=== PATIENT | male | born 1945 | race Caucasian/White ===

== ENCOUNTER 2019-09-01 09:32 | Emergency (ER) | payer OTHER ==
--- NOTE | 2019-09-01 10:12 | EDPHYS ---
Physician Documentation [facility] Name: Connor Nash Age: 73 yrs Sex: Male : 1945 Arrival Date: 09/01/2019 Time: 09:36 Bed 15 Private MD: ED Physician Robi Anderson HPI: 08/31 10:08 This 73 yrs old Male presents to ER via Ambulatory with complaints of Poision jmm Maddie, Rash. 10:08 The patient's rash thought to be caused by Dermatitis. Onset: The symptoms/episode jmm began/occurred gradually, 2 week(s) ago. Associated signs and symptoms: Pertinent positives: itching, Pertinent negatives: difficulty breathing, Pain swelling of lips, swelling of throat, swelling of tongue, wheezing. Treatment given at home: OTC lotion/cream. Patient states having no relief with OTC medications. Historical: - Allergies: 09:58 No Known Allergies; ca1 - PMHx: 09:58 Diabetes - NIDDM; Hyperlipidemia; Hypertension; ca1 - PSHx: 09:58 None; ca1 - Immunization history:: Adult Immunizations up to date. - Social history:: Smoking status: Patient reports the use of cigarette tobacco products, smokes one-half pack cigarettes per day. ROS: 10:08 Constitutional: Negative for fever, chills, and weight loss, Cardiovascular: Negative jmm for chest pain, palpitations, and edema, Respiratory: Negative for shortness of breath, cough, wheezing, and pleuritic chest pain. 10:08 Skin: Positive for rash. 10:08 All other systems are negative. Exam: 10:08 Constitutional: This is a well developed, well nourished patient who is awake, alert, jmm and in no acute distress. Head/Face: atraumatic. Eyes: EOMI, no conjunctival erythema appreciated ENT: Moist Mucus Membranes Neck: Trachea midline, Supple Chest/axilla: Normal chest wall appearance and motion. Cardiovascular: Regular rate and rhythm. No edema appreciated Respiratory: Normal respirations, no respiratory distress appreciated Abdomen/GI: Non distended, soft Back: Normal ROM 10:08 Skin: erythema noted to the forearms bilaterally, consistent with contact dermatitis. 10:08 Neuro: Orientation: is normal, Mentation: is normal, Memory: is normal. 10:08 Psych: Behavior/mood is pleasant, cooperative. Vital Signs: 09:55 BP 173 / 76; Pulse 70; Resp 15 S; Temp 97.6(TE); Pulse Ox 100% on R/A; Weight 95.25 kg ca1 (R); Height 5 ft. 11 in. (180.34 cm) (R); 09:55 Body Mass Index 29.29 (95.25 kg, 180.34 cm) ca1 MDM: 10:00 Patient medically screened. surya 10:10 Data reviewed: vital signs, nurses notes. Counseling: I had a detailed discussion with surya the patient and/or guardian regarding: the historical points, exam findings, and any diagnostic results supporting the discharge/admit diagnosis, the need for outpatient follow up, to return to the emergency department if symptoms worsen or persist or if there are any questions or concerns that arise at home. ED course: Patient is alert and non toxic in appearance in the ED. PE consistent with contact dermatitis. Patient advised to close monitor home BGL and d/c prednisone if elevated. Patient is otherwise given strict return precautions. Patient understood and agrees with the plan of care. . Administered Medications: No medications were administered Disposition: 14:52 Co-signature as Attending Physician, Robi Anderson MD. rn Disposition: 09/01/19 10:11 Discharged to Home. Impression: Rash and other nonspecific skin eruption. - Condition is Stable. - Discharge Instructions: Rash. - Prescriptions for Prednisone 20 mg Oral Tablet - take 3 tablets by ORAL route once daily for 12 days Take 3 pills once daily for 3 days, then take 2 pills daily for 3 days, then take 1 pill daily for 3 days, then 1/2 tab po daily for 3 days.; 20 tablet. - Medication Reconciliation Form, Thank You Letter, Antibiotic Education, Prescription Opioid Use form. - Follow up: Private Physician; When: 2 - 3 days; Reason: Recheck today's complaints, Continuance of care, Re-evaluation by your physician. Signatures: Lizbet Alford RN RN Bronson Yancey PA PA jmm Nieto, Roman, MD MD rn Acob, Pita RN RN ca1 Corrections: (The following items were deleted from the chart) 10:29 10:11 09/01/2019 10:11 Discharged to Home. Impression: Rash and other nonspecific skin sv eruption. Condition is Stable. Forms are Medication Reconciliation Form, Thank You Letter, Antibiotic Education, Prescription Opioid Use. Follow up: Private Physician; When: 2 - 3 days; Reason: Recheck today's complaints, Continuance of care, Re-evaluation by your physician. surya
--- NOTE | 2019-09-01 10:12 | ER ---
Nurse's Notes [facility] Name: Connor Nash Age: 73 yrs Sex: Male : 1945 Arrival Date: 09/01/2019 Time: 09:36 Bed 15 Private MD: Diagnosis: Rash and other nonspecific skin eruption Presentation: 08/31 09:55 Chief complaint: Patient states: Red rash on R forearm started 2 weeks ago. Hasn't gone ca1 away with topical creams and ointments and it's slowly spreading upwards. Coronavirus screen: Proceed with normal triage. Patient denies a cough. Patient denies shortness of breath or difficulty breathing. Patient denies measured and/or subjective temperature greater than 100.4F prior to today's visit. Patient denies travel on a cruise ship or to a country the [facility] currently lists as an affected area. Patient denies contact with known and/or suspected case of COVID-19. Ebola Screen: Patient negative for fever greater than or equal to 101.5 degrees Fahrenheit, and additional compatible Ebola Virus Disease symptoms Patient denies exposure to infectious person. Patient denies travel to an Ebola-affected area in the 21 days before illness onset. No symptoms or risks identified at this time. Initial Sepsis Screen: Does the patient meet any 2 criteria? No. Patient's initial sepsis screen is negative. Does the patient have a suspected source of infection? No. Patient's initial sepsis screen is negative. Risk Assessment: Do you want to hurt yourself or someone else? Patient reports no desire to harm self or others. Onset of symptoms was September 01, 2019. 09:55 Method Of Arrival: Ambulatory ca1 09:55 Acuity: KIP 4 ca1 Historical: - Allergies: 09:58 No Known Allergies; ca1 - PMHx: 09:58 Diabetes - NIDDM; Hyperlipidemia; Hypertension; ca1 - PSHx: 09:58 None; ca1 - Immunization history:: Adult Immunizations up to date. - Social history:: Smoking status: Patient reports the use of cigarette tobacco products, smokes one-half pack cigarettes per day. Screenin:06 Abuse screen: Denies threats or abuse. Denies injuries from another. Nutritional sv screening: No deficits noted. Tuberculosis screening: No symptoms or risk factors identified. Fall Risk None identified. Assessment: 10:00 General: Appears in no apparent distress. uncomfortable, well groomed, well developed, sv Behavior is calm, cooperative, appropriate for age. Pain: Denies pain. Neuro: Level of Consciousness is awake, alert, obeys commands, Oriented to person, place, time, situation, Moves all extremities. Full function Gait is steady. Respiratory: Respiratory effort is even, unlabored, Respiratory pattern is regular, symmetrical. Derm: Skin is pink, warm \T\ dry. Rash noted that is itchy, red, urticaria, on chest, right arm and left arm. Musculoskeletal: Range of motion: intact in all extremities. Vital Signs: 09:55 BP 173 / 76; Pulse 70; Resp 15 S; Temp 97.6(TE); Pulse Ox 100% on R/A; Weight 95.25 kg ca1 (R); Height 5 ft. 11 in. (180.34 cm) (R); 09:55 Body Mass Index 29.29 (95.25 kg, 180.34 cm) ca1 ED Course: 09:36 Patient arrived in ED. bp1 09:46 Bronosn Grey PA is PHCP. jmm 09:46 Robi Anderson MD is Attending Physician. jmm 09:57 Triage completed. ca1 09:58 Arm band placed on right wrist. ca1 09:59 Lizbet Alford RN is Primary Nurse. sv 10:06 Nurse Practitioner and/or Physician Scale Tank Operator to see patient. sv 10:06 Patient has correct armband on for positive identification. Bed in low position. Call sv light in reach. Door closed. Head of bed elevated. 10:06 No provider procedures requiring assistance completed. Patient did not have IV access sv during this emergency room visit. Administered Medications: No medications were administered Outcome: 10:11 Discharge ordered by . jm 10:29 Discharged to home ambulatory. sv 10:29 Condition: stable 10:29 Discharge instructions given to patient, Instructed on discharge instructions, follow up and referral plans. medication usage, Demonstrated understanding of instructions, follow-up care, medications, Prescriptions given X 1. 10:29 Patient left the ED. sv Signatures: Lizbet Alford RN RN Bronson Yancey PA PA jmm Acob, Cheryl, RN RN [facility] Susana Angeles bp1
[2019-09-01 10:53] VITALS: BP 173/76; TEMP 97.6; O2SAT 100
== END 2019-09-01 10:29 | disposition home or self-care (01) ==
LOC: ER 09:32
DX: R21 Rash and other nonspecific skin eruption (principal); I10 Essential (primary) hypertension; F17.210 Nicotine dependence, cigarettes, uncomplicated
CPT/HCPCS: 99282

== ENCOUNTER 2024-01-21 06:15 | Day surgery (SDC) | payer OTHER ==
[2024-01-19 11:10] LABS: Absolute Basophils 0.1 K/uL (0-0.5); Absolute Eosinophils 0.3 K/uL (0-0.5); Absolute Lymphocytes (CBC) 2.5 K/uL (0.7-4.9); Absolute Monocytes 1.6 K/uL (0.1-1.3); Absolute Neutrophil 10.6 K/uL (1.8-8.0); Basophils % 0.4 % (0-1.3); Hematocrit 30.5 % (39.6-49.0); Hemoglobin 9.8 g/dL (13.6-17.9); Lymphocytes % 16.5 % (15.3-44.8); MCH 27.5 pg (27.0-35.0); MCHC 32.2 g/dL (32.0-36.0); MCV 85.5 fL (80-100); MPV 7.6 fL (7.6-11.3); Monocytes % 10.8 % (3.3-12.3); Neutrophils % 70.3 % (41.7-73.7); Platelets 616 thou/uL (152-406); RBC Red Blood Cell Count 3.57 M/uL (4.33-5.43); Red Cell Distribution Width 13.2 % (12.1-15.2)
[2024-01-19 11:21] LABS: Anion Gap 9.6 mEq/L (5.0-15.0); Potassium 4.6 mEq/L (3.5-5.1)
[2024-01-21] MEDS ORDERED: Phenylephrine HCl 10 MG/ML 1 ML VIAL ONE (06:55)
[2024-01-21] MEDS ORDERED: GLYCOPYRROLATE 0.2 MG/ML SYR ONE ×2 (06:55→08:10)
[2024-01-21] MEDS ORDERED: NA CHLORIDE 0.9% 1,000 ML ONE (06:55)
[2024-01-21] MEDS ORDERED: propofoL 200 MG/20 ML VIAL IV ONE (07:22)
[2024-01-21] MEDS ORDERED: LIDOCAINE 1% MPF 5 ML VIAL ONE (07:22)
[2024-01-21] MEDS: Phenylephrine HCl 10 MG/ML 1 ML VIAL ONE (07:40)
[2024-01-21] MEDS: LIDOCAINE 4% TOP SOLUTION ONE (08:00)
[2024-01-21] MEDS ORDERED: NA CHLORIDE 0.9% 0 ML ONE (08:10)
[2024-01-21] MEDS: LIDOCAINE 1% MPF 30 ML VIAL ONE (08:10)
--- NOTE | 2024-01-21 10:18 | RAD REPORT ---
Procedure: Chest Single View HISTORY: Bronchoscopy FINDINGS: A pneumothorax is not visualized status post bronchoscopy. Curvilinear low density adjacent to the aortic arch is equivocal for pneumomediastinum.
[2024-01-21 10:53] VITALS: BP 130/61; TEMP 97.5; O2SAT 98
--- NOTE | 2024-01-21 13:54 | P.OP ---
Date of Service: 01/21/24 (Bronchoscopy with ABISAI TBX biopsy and BAL) Findings and Operative Technique Pt is 78 yrs of age evaluated for large ABISAI lung mass Affter an informed consent from pt he was premed by anesthesia Finding Normal trachea,carini, ? endobronchial mass in the ABISAI ant seg bronchus. Multiple BX and BAL were taken from ABISAI ant seg. Unable to cannulate ABISAI paical segmental beonchus. Pt tolerated the procedure will. No complications or penumothorax.
--- NOTE | 2024-01-21 17:24 | RAD REPORT ---
EXAM: Fluoroscopy use, FLUORO-GUIDE FOR BRONCH UPT1HR HISTORY: [facility] BRONCH COMPARISON: None FINDINGS: A total of 5 images were sent to PACS, during a fluoroscopically guided bronchoscopy. No ra diologist was involved in protocoling or performance of the study, and no radiologist was present for the duration of the procedure. No interpretation of the saved images will be provided. Total fluoroscopy time: 13.3 seconds. IMPRESSION: Documentation of fluoroscopy use as above.
== END 2024-01-21 10:43 | disposition home or self-care (01) ==
LOC: PRE 06:15 → OR 10:43
PROVIDERS: ATTEND Internal Medicine Sleep Medicine
PROC: 0BBG8ZX Excision of Left Upper Lung Lobe, Via Natural or Artificial Opening Endoscopic, Diagnostic (ICD-10-PCS; principal; 2024-01-21 08:00)
DX: C34.12 Malignant neoplasm of upper lobe, left bronchus or lung (principal); I10 Essential (primary) hypertension; E11.9 Type 2 diabetes mellitus without complications
CPT/HCPCS: 31625; 31624; 85025; 80048; 36415; 88108; 82947; 88305 ×2; 87015; 87206; 87116; 87102; 71045; 76000; J2704; J2003 ×2; J2371; J7030

== ENCOUNTER 2024-04-13 05:56 | Day surgery (SDC) | payer OTHER ==
[2024-04-13 06:53] LABS: Anion Gap 11.7 mEq/L (5.0-15.0); Potassium 3.7 mEq/L (3.5-5.1)
[2024-04-13 06:54] LABS: Absolute Basophils 0.1 K/uL (0-0.5); Absolute Eosinophils 0.2 K/uL (0-0.5); Absolute Lymphocytes (CBC) 1.6 K/uL (0.7-4.9); Absolute Monocytes 1.1 K/uL (0.1-1.3); Absolute Neutrophil 9.4 K/uL (1.8-8.0); Basophils % 0.9 % (0-1.3); Eosinophils % 1.9 % (0-4.4); Hematocrit 23.2 % (39.6-49.0); Hemoglobin 7.8 g/dL (13.6-17.9); Lymphocytes % 13.1 % (15.3-44.8); MCH 27.7 pg (27.0-35.0); MCHC 33.8 g/dL (32.0-36.0); MCV 81.8 fL (80-100); MPV 7.8 fL (7.6-11.3); Neutrophils % 75.1 % (41.7-73.7); Nucleated Red Blood Cells % 0.1 % (0-0); Platelets 557 thou/uL (152-406); RBC Red Blood Cell Count 2.83 M/uL (4.33-5.43); Red Cell Distribution Width 14.2 % (12.1-15.2)
[2024-04-13] MEDS ORDERED: NS 0.9% VIAL 20 ML ONE (07:07)
[2024-04-13] MEDS ORDERED: HEPARIN 5000 UNIT/ML 1 ML VIAL ONE (07:08)
[2024-04-13] MEDS ORDERED: LIDOCAINE 1% 20 ML MDV ONE (07:08)
[2024-04-13] MEDS: CEFAZOLIN SODIUM 2 GM/VIAL ONE (07:53)
[2024-04-13] MEDS: NA CHLORIDE 0.9% 1,000 ML ONE (07:56)
[2024-04-13] MEDS ORDERED: propofoL 200 MG/20 ML VIAL IV ONE (08:00)
[2024-04-13] MEDS ORDERED: LIDOCAINE 2% MPF 5 ML VIAL ONE (08:00)
[2024-04-13] MEDS ORDERED: FENTANYL CITR 100 MCG/2 ML ONE (08:00)
[2024-04-13] MEDS ORDERED: Phenylephrine HCl 10 MG/ML 1 ML VIAL ONE (08:38)
[2024-04-13] MEDS ORDERED: EPHEDRINE SULF 50 MG/ML VIAL ONE (08:48)
[2024-04-13] MEDS ORDERED: ONDANSETRON 4 MG/2 ML VIAL ONE (09:15)
[2024-04-13] MEDS ORDERED: Mastisol Adhesive Liq ONE (09:21)
--- NOTE | 2024-04-13 09:39 | P.OP ---
Date of Service: 04/13/24 Preop diagnosis: Lung cancer Postop diagnosis: Same Procedure performed: Placement of right subclavian Port-A-Cath, interpretation of Doppler and fluoroscopy Surgeon: Juan Carlos Marr MD Materials Planning Analyst: None Estimated blood loss: Minimal Specimen: None Findings: Unable to access the right internal jugular vein Anesthesia: General Complications: None Drains: None Fluids and blood products: Nonapplicable Disposition: Recovery room Operative note: Patient brought to the OR and placed in supine position. General anesthesia began. Patient prepped and draped in usual sterile fashion. Marcaine 0.5% infiltrated locally. Doppler device used to isolate the internal jugular vein. It was small. 18-gauge needle was used to access the internal jugular vein. Guidewire was attempted to pass into the vein, however, we were unable. Therefore, 18-gauge needle was used to access the right subclavian vein. Guidewire was passed and position confirmed with fluoroscopy. 3 cm counterincision was made on the right anterior chest. A pocket was created. Bleeding was controlled with cautery. Tunneling device was used to tunnel the catheter between the 2 wounds. Seldinger technique was used to place the tip of the catheter at the SVC right atrial junction. Catheter was cut to appropriate size and attached to the Port-A-Cath device. Port-A-Cath device was attached to subcutaneous tissue with 3-0 Vicryl. 0 chromic was used to reapproximate subcutaneous tissue and close skin. The port was flushed with heparin and packed with heparin with good blood flow. Sterile dressing was applied. Patient was awakened and taken to recovery room in good general condition. Chest x-ray was ordered. CC: Dr. An's office
[2024-04-13] MEDS ORDERED: HYDROCODONE/APAP 5/325 MG TAB PO PRN (09:41)
--- NOTE | 2024-04-13 09:41 | RAD REPORT ---
EXAM: Fluoroscopy use, Fluoroscopy <1 Hour HISTORY: PORT A CATH COMPARISON: None FINDINGS: Multiple images were sent to PACS, during a fluoroscopically guided procedure. No radiologi st was involved in protocoling or performance of the study, and no radiologist was present for the duration of the procedure. No interpretation of the saved images will be provided. Total fluoroscopy time: 0.9. IMPRESSION: Documentation of fluoroscopy use as above. Transcribed Date/Time: 04/13/2024 9:40 AM
[2024-04-13 10:20] VITALS: O2SAT 96
--- NOTE | 2024-04-13 11:59 | RAD REPORT ---
EXAMINATION: ONE VIEW CHEST XR CLINICAL INDICATION: Male, 78 years old.,Status post placement of a vascular access device TECHNIQUE: Frontal chest projection is submitted. Examination is limited by patient positioning and t echnique. COMPARISON: 01/21/2024 FINDINGS: Progressive left upper lung masslike opacity in comparison to the prior radiograph. Interval placemen t of right subclavian Port-A-Cath with catheter tip at the level of the superior cavoatrial junction. No pneumothorax or sizable effusion. The heart is normal in size. Mediastinal contours are unremarkable. IMPRESSION: Satisfactory right chest wall Port-A-Cath placement. No pneumothorax. Progressive masslike left upper lung opacity.
[2024-04-13 12:34] VITALS: BP 130/76
[2024-04-13 12:35] VITALS: TEMP 97
--- NOTE | 2024-04-14 16:49 | EKG ---
Test Date: 2024-04-13 Test Time: 07:46:15 Automatic Hemmer: ARIELLA MEASUREMENT RESULTS: Intervals: Rate: 73 IA: 170 QRSD: 100 QT: 404 QTc: 445 Buckner: P: 87 IA: 170 QRS: 76 T: 55 INTERPRETIVE STATEMENTS: Sinus rhythm with occasional premature ventricular complexes Otherwise normal ECG Compared to ECG 04/29/2016 12:01:52 Ventricular premature complex(es) now present Electronically Signed On 04-14-24 16:45:31 TIMBER SIZER OPERATOR by Melchor Fernando
== END 2024-04-13 11:27 | disposition home or self-care (01) ==
LOC: PRE 05:56 → OR 11:27
PROVIDERS: ATTEND Surgery
PROC: 0JH60WZ Insertion of Totally Implantable Vascular Access Device into Chest Subcutaneous Tissue and Fascia, Open Approach (ICD-10-PCS; principal; 2024-04-13 08:00)
DX: C34.12 Malignant neoplasm of upper lobe, left bronchus or lung (principal)
CPT/HCPCS: 85025; 80048; 36415; 82947 ×2; 71045; 36561; J1644 ×2; A4216; J2704; J2371; J2003; J3010; J2405; J7030; C1788; 76000; 93005